=== PATIENT | female | born 1950 | race Caucasian/White ===

== ENCOUNTER 2020-11-19 07:18 | Outpatient (CLI) | payer BC | END 2020-11-19 07:19 | disposition home or self-care (01) | LOC: CSHCT 07:18 | PROVIDERS: ATTEND Family Medicine | DX: R52 Pain, unspecified (principal); R19.09 Other intra-abdominal and pelvic swelling, mass and lump | CPT/HCPCS: 74176 ==

== ENCOUNTER 2021-07-07 10:53 | Outpatient (CLI) | payer MEDICARE, BC | END 2021-07-07 10:54 | disposition home or self-care (01) | LOC: CSHMAMMO 10:53 | PROVIDERS: ATTEND Student in an Organized Health Care Education/Training Program | DX: Z12.31 Encounter for screening mammogram for malignant neoplasm of breast (principal) | CPT/HCPCS: 77063; 77067 ==

== ENCOUNTER 2022-04-12 09:31 | Outpatient (CLI) | payer MEDICARE, BC ==
[2022-04-12] MEDS ORDERED: Magnevist 469MG/ML 20 ML VIAL ONE (11:58)
== END 2022-04-12 09:32 | disposition home or self-care (01) ==
LOC: CSHMRI 09:31
PROVIDERS: ATTEND Otolaryngology Plastic Surgery within the Head & Neck
DX: H91.93 Unspecified hearing loss, bilateral (principal); H74.93 Unspecified disorder of middle ear and mastoid, bilateral
CPT/HCPCS: 70553; 82565

== ENCOUNTER 2023-07-21 09:51 | Outpatient (CLI) | payer MEDICARE, BC | END 2023-07-21 09:52 | disposition home or self-care (01) | LOC: CSHMAMMO 09:51 | PROVIDERS: ATTEND Nurse Practitioner Family | DX: Z12.31 Encounter for screening mammogram for malignant neoplasm of breast (principal) | CPT/HCPCS: 77063; 77067 ==

== ENCOUNTER 2024-07-25 09:43 | Outpatient (CLI) | payer BC, MEDICARE | END 2024-07-25 09:44 | disposition home or self-care (01) | LOC: CSHMAMMO 09:43 | PROVIDERS: ATTEND Nurse Practitioner Family | DX: Z12.31 Encounter for screening mammogram for malignant neoplasm of breast (principal); Z78.0 Asymptomatic menopausal state; M85.89 Other specified disorders of bone density and structure, multiple sites | CPT/HCPCS: 77063; 77067; 77080 ==

== ENCOUNTER 2025-07-26 14:55 | Outpatient (CLI) | payer MEDICARE | END 2025-07-26 14:56 | disposition home or self-care (01) | LOC: CSHMAMMO 14:55 | PROVIDERS: ATTEND Family Medicine | DX: Z12.31 Encounter for screening mammogram for malignant neoplasm of breast (principal); Z85.828 Personal history of other malignant neoplasm of skin | CPT/HCPCS: 77063; 77067 ==